=== PATIENT | male | born 1950 | race Caucasian/White ===

== ENCOUNTER 2018-07-21 05:34 | Emergency (ER) | payer BC, MEDICARE ==
--- NOTE | 2018-07-21 05:45 | EDM.PDOC ---
ED HPI GENERAL MEDICAL PROBLEM - General Chief Complaint: Genitourinary Problem Stated Complaint: BLOODY URINE Time Seen by Provider: 07/21/18 05:44 Source of Information: Reports: Patient - History of Present Illness INITIAL COMMENTS - FREE TEXT/NARRATIVE: HISTORY AND PHYSICAL: History of present illness: [Last week patient has had 2 episodes of gross hematuria with clots, on Friday he had an episode had resolved with clear urine for several days, he presents this morning with similar symptoms no fever nausea vomiting chills sweats no chest pain shortness breath headache dizziness palpitation no bowel symptoms ] Review of systems: As per history of present illness and below otherwise all systems reviewed and negative. Past medical history: As per history of present illness and as reviewed below otherwise noncontributory. Surgical history: As per history of present illness and as reviewed below otherwise noncontributory. Social history: No reported history of drug or alcohol abuse. Family history: As per history of present illness and as reviewed below otherwise noncontributory. Physical exam: HEENT: Atraumatic, normocephalic, pupils reactive, negative for conjunctival pallor or scleral icterus, mucous membranes moist, throat clear, neck supple, nontender, trachea midline. Lungs: Clear to auscultation, breath sounds equal bilaterally, chest nontender. Heart: S1S2, regular, negative for clicks, rubs, or JVD. Abdomen: Soft, nondistended, nontender. Negative for masses or hepatosplenomegaly. Negative for costovertebral tenderness. Pelvis: Stable nontender. Genitourinary: Deferred. Rectal: Deferred. Extremities: Atraumatic, negative for cords or calf pain. Neurovascular unremarkable. Neuro: Awake, alert, oriented. Cranial nerves II through XII unremarkable. Cerebellum unremarkable. Motor and sensory unremarkable throughout. Exam nonfocal. Diagnostics: [CBC CMP UA INR-culture pending Under ultrasound ]Bladder scan 54 mL post void Therapeutics: [Cipro 500 by mouth twice a day #20 no refill Follow-up with urology ] Impression: [Hematuria ] Elevated white blood cells seen urine Irregular bladder wall on ultrasound Definitive disposition and diagnosis as appropriate pending reevaluation and review of above. urinate Pain Score (Numeric/FACES): 4 - Related Data Allergies Allergy/AdvReac Type Severity Reaction Status Date / Time No Known Allergies Allergy Verified 07/21/18 05:43 Home Meds: Home Meds Lisinopril 10 mg PO DAILY 07/21/18 [History] atorvaSTATin [Lipitor] 80 mg PO DAILY 07/21/18 [History] ED ROS GENERAL - Review of Systems Review Of Systems: See Below ED EXAM, GENERAL - Physical Exam Exam: See Below Course - Vital Signs Last Recorded V/S: Last Vital Signs Temp 96.6 F 07/21/18 05:44 Pulse 94 07/21/18 05:44 Resp 18 07/21/18 05:44 BP 163/93 H 07/21/18 05:44 Pulse Ox 98 07/21/18 05:44 - Orders/Labs/Meds Orders: Active Orders 24 hr Category Date Time Status Urinary Catheter Assessment [RC] ASDIRECTED Care 07/21/18 07:12 Active Urinary Catheter Insertion [Insert Urinary Catheter] [ Care 07/21/18 07:15 Ordered OM.PC] Q24H CULTURE URINE [RM] Stat Lab 07/21/18 05:50 Received Labs: Laboratory Tests 07/21/18 07/21/18 07/21/18 Range/Units 05:50 06:09 06:09 WBC 11.73 H (4.0-11.0) K/uL RBC 4.39 L (4.50-5.90) M/uL Hgb 14.2 (13.0-17.0) g/dL Hct 41.6 (38.0-50.0) % MCV 94.8 (80.0-98.0) fL MCH 32.3 H (27.0-32.0) pg MCHC 34.1 (31.0-37.0) g/dL RDW Std Deviation 48.0 (28.0-62.0) fl RDW Coeff of Roberto Carlos 14 (11.0-15.0) % Plt Count 326 (150-400) K/uL MPV 9.50 (7.40-12.00) fL Neut % (Auto) 71.2 (48.0-80.0) % Lymph % (Auto) 12.8 L (16.0-40.0) % Lucas % (Auto) 14.2 (0.0-15.0) % Eos % (Auto) 1.5 (0.0-7.0) % Baso % (Auto) 0.3 (0.0-1.5) % Neut # (Auto) 8.4 H (1.4-5.7) K/uL Lymph # (Auto) 1.5 (0.6-2.4) K/uL Lucas # (Auto) 1.7 H (0.0-0.8) K/uL Eos # (Auto) 0.2 (0.0-0.7) K/uL Baso # (Auto) 0.0 (0.0-0.1) K/uL Nucleated RBC % 0.0 /100WBC Nucleated RBCs # 0 K/uL Sodium 139 (136-148) mmol/L Potassium 4.3 (3.5-5.1) mmol/L Chloride 102 (98-107) mmol/L Carbon Dioxide 26.1 (21.0-32.0) mmol/L BUN 12 (7.0-18.0) mg/dL Creatinine 1.2 (0.8-1.3) mg/dL Est Cr Clr Drug Dosing 56.96 mL/min Estimated GFR (MDRD) 59.9 ml/min Glucose 113 H (74-106) mg/dL Calcium 9.6 (8.5-10.1) mg/dL Total Bilirubin 0.3 (0.2-1.0) mg/dL AST 17 (15-37) IU/L ALT 29 (14-63) IU/L Alkaline Phosphatase 90 (46-116) U/L Total Protein 7.4 (6.4-8.2) g/dL Albumin 3.4 (3.4-5.0) g/dL Globulin 4.0 (2.6-4.0) g/dL Albumin/Globulin Ratio 0.9 (0.9-1.6) Urine Color RED Urine Appearance BLOODY Urine pH 7.0 (5.0-8.0) Ur Specific Hooper 1.020 (1.001-1.035) Urine Protein >=300 H (NEGATIVE) mg/dL Urine Glucose (UA) NEGATIVE (NEGATIVE) mg/dL Urine Ketones TRACE H (NEGATIVE) mg/dL Urine Occult Blood LARGE H (NEGATIVE) Urine Nitrite NEGATIVE (NEGATIVE) Urine Bilirubin SMALL H (NEGATIVE) Urine Urobilinogen 0.2 (<2.0) EU/dL Ur Leukocyte Esterase TRACE H (NEGATIVE) Urine RBC TOO NUMEROUS TO CT (0-2/HPF) Urine WBC 80-90 (0-5/HPF) Ur Epithelial Cells OCCASIONAL (NONE-FEW) Urine Bacteria RARE (NEGATIVE) Urinalysis Comment Departure - Departure Time of Disposition: 08:15 Disposition: Home, Self-Care 01 Condition: Good Clinical Impression: UTI, Urinary tract infectious disease, Hematuria - Discharge Information Referrals: PCP,None [Primary Care Provider] - Forms: ED Department Discharge - My Orders Last 24 Hours: My Active Orders 07/21/18 05:50 CULTURE URINE [RM] Stat 07/21/18 07:12 Urinary Catheter Assessment [RC] ASDIRECTED 07/21/18 07:15 Urinary Catheter Insertion [Insert Urinary Catheter] [OM.PC] Q24H - Assessment/Plan Last 24 Hours: My Active Orders 07/21/18 05:50 CULTURE URINE [RM] Stat 07/21/18 07:12 Urinary Catheter Assessment [RC] ASDIRECTED 07/21/18 07:15 Urinary Catheter Insertion [Insert Urinary Catheter] [OM.PC] Q24H
--- NOTE | 2018-07-21 08:12 | US ---
INDICATION: Hematuria. Comparison: None. TECHNIQUE: Ultrasound examination of the kidneys and bladder. FINDINGS: The right kidney is measuring 10.9 x 5.1 x 5.9 cm and the left kidney is measuring 10.7 x 4.5 x 4.9 cm. Normal echogenic pattern of the renal cortex bilaterally. Normal thickness of the renal cortex bilaterally. No obstructive uropathy or perinephric pathology. Urinary bladder was not distended so Abreu catheter was placed and bladder was filled. Irregularity of the bladder wall. After removal of the Abreu catheter, patient voided in the bathroom. IMPRESSION: 1. Normal kidney ultrasound without any obstructive uropathy or perinephric pathology. 2. Bladder is empty. 3. Bladder was filled after placing a Abreu catheter which revealed relatively irregular bladder wall. Dictated by Joseph Clarke MD @ Jul 21 2018 8:07AM Signed by Dr. Joseph Clarke @ Jul 21 2018 8:11AM
== END 2018-07-21 08:29 | disposition home or self-care (01) ==
LOC: MW.ED 05:34
DX: N39.0 Urinary tract infection, site not specified (principal); R31.9 Hematuria, unspecified; N32.89 Other specified disorders of bladder; Z79.899 Other long term (current) drug therapy
CPT/HCPCS: 36415; 76775; 76775-26; 80053; 81001; 85025; 87086; 87088; 87186; 99283; 99284-25